=== PATIENT | female | born 1960 | race African-American/Black ===

== ENCOUNTER 2016-06-25 22:44 | Emergency (ER) | payer BC ==
[~2016-06-25] VITALS: Ht 170.2 cm; Wt 87.5 kg
[~2016-06-25 22:44] MED LIST: ADVAIR HFA 115-12 GM INH; AVELOX 400 MG400 M1; CEFDINIR300 MG PO; COZAAR 25 MG TA25 M2 PO; COZAAR 50 MG TA50 M2 PO; DIFLUCAN100 MG PO; DULERA 200 MCG/13 GM INH; DUONEB 2.5-0.5 M3 ML; FLONASE 0.05%50 MCG NASAL; GLUCOPHAGE1000 MG; GLUCOPHAGE1000 MG PO; LAMISIL250 MG; LAMISIL250 MG PO; LEVAQUIN 500 M500 M2 PO; METHYLPREDNISOLO4 M1 PO; NASONEX17 GM; NASONEX17 GM NASAL; OMEPRAZOLE40 MG PO; PAIN & FEVER500 MG PO; PREDNISONE 10 M10 MG PO; PREDNISONE 20 M20 M1 PO; PREDNISONE 20 M20 MG; PREDNISONE 20 M20 MG PO; PRILOSEC20 MG; PROVENTIL HFA6.7 G1 INH; SINGULAIR; VENTOLIN HFA 1818 GM INH; ZANTAC; ZOFRAN ODT4 MG PO
[2016-06-25] MEDS ORDERED: [UNRECOGNIZED DRUG - OTHER] IV (23:26)
[2016-06-25] MEDS ORDERED: QVAR8.7 G1 (23:27)
[2016-06-25] MEDS ORDERED: VITAMIN E400 UNIT PO (23:27)
[2016-06-26] MEDS ORDERED: IPRATROPIU0.2 MG/1 M INH (00:27)
[2016-06-26] MEDS ORDERED: GUAIFEN-CODEIN120 ML PO (00:31)
[2016-06-26] MEDS ORDERED: ZPAK PO (01:18)
== END 2016-06-26 01:26 | disposition home or self-care (01) ==
LOC: ER 22:44
DX: J01.90 Acute sinusitis, unspecified (principal); J20.9 Acute bronchitis, unspecified; J45.909 Unspecified asthma, uncomplicated; J44.9 Chronic obstructive pulmonary disease, unspecified; I10 Essential (primary) hypertension; E11.9 Type 2 diabetes mellitus without complications; K21.9 Gastro-esophageal reflux disease without esophagitis

== ENCOUNTER 2017-02-09 18:07 | Emergency (ER) | payer BC ==
[~2017-02-09] VITALS: Ht 170.2 cm; Wt 85.3 kg
[~2017-02-09 18:07] MED LIST changes: +GUAIFEN-CODEIN120 ML PO; +IPRATROPIU0.2 MG/1 M INH; +QVAR8.7 G1; +VITAMIN E400 UNIT PO; +ZPAK PO; +[UNRECOGNIZED DRUG - OTHER] IV
[2017-02-09 19:17] LABS: HEMATOCRIT 41.8 % (37.0-47.0); HEMOGLOBIN 13.8 gm/dL (12.0-15.0); MCH 27.6 pg (26.0-34.0); MCHC 33.1 g/dL (28.0-37.0); MCV 83.6 fL (80.0-100.0); RDW 12.9 % (10.5-14.5); WBC 7.2 thou/uL (4.0-11.0)
[2017-02-09 19:25] LABS: CALCIUM 9.5 mg/dL (8.5-10.1); POTASSIUM 3.8 mmol/L (3.5-5.1)
[2017-02-09] MEDS ORDERED: BLACK COHOSH40 MG PO (20:21)
[2017-02-09] MEDS ORDERED: PULMICORT0.25 MG/3 INH (20:22)
[2017-02-09] MEDS ORDERED: VITAMIN D3400 UNIT PO (20:22)
[2017-02-09] MEDS ORDERED: DEXAMETHASONE 0.5 M1 NASAL (20:24)
[2017-02-09] MEDS ORDERED: IBUPROFEN 800800 M1 PO (20:25)
[2017-02-09] MEDS ORDERED: NORCO 5-325 TA1 EACH PO (20:25)
[2017-02-09] MEDS ORDERED: ATROVENT HFA14 GM NASAL (20:26)
[2017-02-09] MEDS ORDERED: PROBIOTIC1 EAC1 PO (20:27)
[2017-02-09] MEDS ORDERED: MUPIROCIN22 GM TOP (20:29)
[2017-02-09] MEDS ORDERED: PROAIR HFA8.5 GM INH ×2 (20:31→20:41)
[2017-02-09] MEDS ORDERED: SPIRIVA INH (20:31)
[2017-02-09] MEDS ORDERED: PREDNISONE 20 M20 MG PO ×2 (20:41→20:55)
[2017-02-09] MEDS ORDERED: AUGMENTIN 875-1 EACH PO (20:55)
[2017-02-09 20:57] VITALS: BP 141/87
[2017-09-08] MEDS ORDERED: DOXYCYCLINE HYC50 MG PO (11:53)
[2017-09-08] MEDS ORDERED: SINGULAIR 10 MG10 M1 PO (11:54)
[2017-09-08] MEDS ORDERED: PREDNISONE 10 M10 MG PO (11:57)
== END 2017-02-09 20:58 | disposition home or self-care (01) ==
LOC: ER 18:07
PROVIDERS: Emergency Medicine
DX: J45.901 Unspecified asthma with (acute) exacerbation (principal); J44.9 Chronic obstructive pulmonary disease, unspecified; E11.9 Type 2 diabetes mellitus without complications; I10 Essential (primary) hypertension; K21.9 Gastro-esophageal reflux disease without esophagitis

== ENCOUNTER 2017-08-05 10:13 | Emergency (ER) | payer BC ==
[~2017-08-05] VITALS: Ht 170.2 cm; Wt 82.1 kg
--- NOTE | ~2017-08-05 | EKG ---
[place] [address] [email or web address] [address] [place] [address] ELECTROCARDIOGRAM REPORT Name: ANTOINETTE RESENDIZ Room #: DEP [id number] Admission: 08/05/17 Attend Phys: Discharge: 08/05/17 Date of : 64 Report #: [id number] THIS REPORT FOR: //name// [facility] ED Test Date: 2017-08-05 Test Time: 10:21:03 Pat Name: ANTOINETTE CAMPOS Department: Room: Gender: F Sap Bobj Developer: ROBY : 1960 Requested By: Gera Senior Order Number: [id number] MD: Frankie Lee Measurements Intervals [place] Rate: 87 P: 73 WA: 146 QRS: 66 QRSD: 95 T: 58 QT: 359 QTc: 432 Interpretive Statements Sinus tachycardia Frequent premature ventricular complexes Left ventricular hypertrophy Baseline wander in lead(s) I Compared to ECG 01/21/2015 21:57:58 Ventricular premature complex(es) now present Electronically Signed On 08-06-2017 7:48:31 CDT by Frankie Lee [email or web address] <ELECTRONICALLY SIGNED> By: Frankie Lee MD, [facility] 08/06/17 0748 1021 1021 Frankie Lee MD, [facility] /EPI
[~2017-08-05 10:13] MED LIST changes: +ATROVENT HFA14 GM NASAL; +AUGMENTIN 875-1 EACH PO; +BLACK COHOSH40 MG PO; +DEXAMETHASONE 0.5 M1 NASAL; +IBUPROFEN 800800 M1 PO; +MUPIROCIN22 GM TOP; +NORCO 5-325 TA1 EACH PO; +PROAIR HFA8.5 GM INH; +PROBIOTIC1 EAC1 PO; +PULMICORT0.25 MG/3 INH; +SPIRIVA INH; +VITAMIN D3400 UNIT PO
[2017-08-05 10:42] LABS: BASOPHILS 1.1 % (0.0-2.0); EOSINOPHILS 1.1 % (0.0-3.0); HEMATOCRIT 42.1 % (37.0-47.0); LYMPHOCYTES 39.1 % (24.0-44.0); MCHC 33.3 g/dL (28.0-37.0); MONOCYTES 7.6 % (1.0-8.0); POLYS 51.1 % (36.0-66.0); RBC 5.01 mil/uL (4.20-5.00); RDW 12.6 % (10.5-14.5); WBC 5.8 thou/uL (4.0-11.0)
[2017-08-05 10:54] LABS: ANION GAP 10 mmol/L (7-16); BUN 10 mg/dL (7-18); CHLORIDE 103 mmol/L (98-107); CO2 28 mmol/L (21-32); GLUCOSE 157 mg/dL (74-106); POTASSIUM 3.8 mmol/L (3.5-5.1); SODIUM 141 mmol/L (136-145)
[2017-08-05 11:00] LABS: LARGE PLATELETS FEW; PLATELET COUNT 262 thou/uL (150-400); PLATELET ESTIMATE NORMAL
[2017-08-05 11:03] LABS: TROPONIN-I <0.06 ng/mL (<0.06)
[2017-08-05] MEDS ORDERED: PREDNISONE 20 M20 MG PO (13:26)
[2017-08-05] MEDS ORDERED: PROAIR HFA8.5 GM INH (13:36)
[2017-08-05] MEDS ORDERED: ALBUTEROL2.5 MG/31 INH (13:36)
[2017-08-05] MEDS ORDERED: PROVENTIL HFA6.7 G1 INH (13:36)
== END 2017-08-05 14:09 | disposition home or self-care (01) ==
LOC: ER 10:13
PROVIDERS: Physician Assistant
DX: J45.901 Unspecified asthma with (acute) exacerbation (principal); I16.0 Hypertensive urgency; E11.9 Type 2 diabetes mellitus without complications; K21.9 Gastro-esophageal reflux disease without esophagitis; Z87.891 Personal history of nicotine dependence

== ENCOUNTER 2017-12-27 11:03 | Emergency (ER) | payer BC ==
[~2017-12-27] VITALS: Ht 170.2 cm; Wt 84.4 kg
[~2017-12-27 11:03] MED LIST changes: +ALBUTEROL2.5 MG/31 INH; +DOXYCYCLINE HYC50 MG PO; +SINGULAIR 10 MG10 M1 PO
[2017-12-27 11:45] LABS: ABSOLUTE NEUTROPHILS 3.1 thou/uL (1.4-8.2); BASOPHILS 0.6 % (0.0-2.0); EOSINOPHILS 0.7 % (0.0-3.0); HEMATOCRIT 38.2 % (37.0-47.0); HEMOGLOBIN 12.6 gm/dL (12.0-15.0); LYMPHOCYTES 25.4 % (24.0-44.0); MCH 27.4 pg (26.0-34.0); MCHC 32.9 g/dL (28.0-37.0); MCV 83.5 fL (80.0-100.0); MONOCYTES 10.5 % (1.0-8.0); PLATELET COUNT 229 thou/uL (150-400); POLYS 62.8 % (36.0-66.0); RBC 4.58 mil/uL (4.20-5.00); RDW 12.5 % (10.5-14.5); WBC 4.9 thou/uL (4.0-11.0)
[2017-12-27 11:54] LABS: CALCIUM 9.4 mg/dL (8.5-10.1); CREATININE 0.9 mg/dL (0.6-1.0); POTASSIUM 3.9 mmol/L (3.5-5.1)
[2017-12-27 12:00] LABS: ALBUMIN 3.7 g/dL (3.4-5.0); TOTAL BILIRUBIN 0.4 mg/dL (<0.1-1.0); TOTAL PROTEIN 7.1 g/dL (6.4-8.2)
[2017-12-27 12:25] LABS: URINE BILIRUBIN NEGATIVE (Negative); URINE BLOOD NEGATIVE (Negative); URINE CLARITY CLEAR; URINE COLOR YELLOW; URINE GLUCOSE-RANDOM* NEGATIVE (Negative); URINE KETONES NEGATIVE (Negative); URINE LEUKOCYTES-REFLEX NEGATIVE (Negative); URINE NITRITE-REFLEX NEGATIVE (Negative); URINE PROTEIN (DIPSTICK) NEGATIVE (Negative); URINE UROBILINOGEN 0.2 E.U./dl (0.2-1.0)
[2017-12-27] MEDS ORDERED: IBUPROFEN 600600 M1 PO (12:51)
[2017-12-27] MEDS ORDERED: NORCO 5-325 TA1 EACH PO (12:51)
[2017-12-27] MEDS ORDERED: FLEXERIL PO (12:51)
[2017-12-27 12:56] VITALS: BP 119/68
== END 2017-12-27 13:00 | disposition home or self-care (01) ==
LOC: ER 11:03
PROVIDERS: Physician Assistant
DX: S39.012A Strain of muscle, fascia and tendon of lower back, initial encounter (principal); R10.9 Unspecified abdominal pain; J45.909 Unspecified asthma, uncomplicated; J44.9 Chronic obstructive pulmonary disease, unspecified; E11.9 Type 2 diabetes mellitus without complications; I10 Essential (primary) hypertension; K21.9 Gastro-esophageal reflux disease without esophagitis; Z87.891 Personal history of nicotine dependence; Z88.8 Allergy status to other drugs, medicaments and biological substances; Z88.2 Allergy status to sulfonamides; X58.XXXA Exposure to other specified factors, initial encounter; Y92.89 Other specified places as the place of occurrence of the external cause; Y93.89 Activity, other specified; Y99.8 Other external cause status

== ENCOUNTER 2018-01-23 20:20 | Emergency (ER) | payer BC ==
[~2018-01-23] VITALS: Ht 170.2 cm; Wt 82.1 kg
[~2018-01-23 20:20] MED LIST changes: +FLEXERIL PO; +IBUPROFEN 600600 M1 PO
[2018-01-23] MEDS ORDERED: PREDNISONE 20 M20 MG PO (22:52)
[2018-01-23 23:10] VITALS: BP 138/75
== END 2018-01-23 23:14 | disposition home or self-care (01) ==
LOC: ER 20:20
DX: J45.901 Unspecified asthma with (acute) exacerbation (principal); I10 Essential (primary) hypertension; E11.9 Type 2 diabetes mellitus without complications; K21.9 Gastro-esophageal reflux disease without esophagitis; Z87.891 Personal history of nicotine dependence; Z88.8 Allergy status to other drugs, medicaments and biological substances; Z88.2 Allergy status to sulfonamides

== ENCOUNTER 2018-07-07 08:10 | Inpatient (IN) | payer BC ==
[~2018-07-07] VITALS: Ht 170.2 cm; Wt 80.7 kg
[2018-07-07 08:11] VITALS: BP 174/92
[2018-07-07 09:09] LABS: HEMATOCRIT 40.6 % (37.0-47.0); HEMOGLOBIN 13.4 gm/dL (12.0-15.0); MCH 27.9 pg (26.0-34.0); MCHC 33.1 g/dL (28.0-37.0); MCV 84.3 fL (80.0-100.0); PLATELET COUNT 231 thou/uL (150-400); RBC 4.82 mil/uL (4.20-5.00); RDW 13.2 % (10.5-14.5); WBC 6.8 thou/uL (4.0-11.0)
[2018-07-07 09:14] LABS: CALCIUM 9.3 mg/dL (8.5-10.1); CREATININE 0.9 mg/dL (0.6-1.0); POTASSIUM 3.6 mmol/L (3.5-5.1)
[2018-07-07 09:43] LABS: ABSOLUTE NEUTROPHILS 4.2 thou/uL (1.4-8.2); PLATELET ESTIMATE NORMAL
[2018-07-07 16:30] VITALS: BP 145/99
[2018-07-07 16:45] VITALS: BP 163/97
[2018-07-07 18:42] VITALS: BP 155/97
--- NOTE | 2018-07-07 18:47 | NUR ---
Patient arrived from ER. Alert and oriented x4, pleasant. Requesting dinner, tray delivered to room. On 2L NC. Steady gait. Oriented to room, call light, bed and fall precautions. Verbalizes understanding. Telemetry placed on patient and vitals taken. Pulmonary consult called and Dr. Herzog with call back. Updated on patient; Jayjay ordered PRN. Will report off to next shift. Continue to monitor.
[2018-07-07 19:46] VITALS: BP 125/90
[2018-07-07] MEDS ORDERED: LOSARTAN POTAS100 MG PO (20:57)
[2018-07-07] MEDS ORDERED: ZANTAC 150MG T150 M1 PO (20:58)
[2018-07-07] MEDS ORDERED: IBUPROFEN 800800 M1 PO (20:59)
[2018-07-07] MEDS ORDERED: METFORMIN HCL500 MG PO (21:49)
[2018-07-07] MEDS ORDERED: SYMBICORT160 MCG/4. INH (22:22)
[2018-07-07] MEDS ORDERED: QNASL10.6 GM INH (22:25)
[2018-07-08 00:12] VITALS: BP 158/93
[2018-07-08 04:24] VITALS: BP 143/96
--- NOTE | 2018-07-08 04:49 | NUR ---
PATIENT IS PROGRESSING IN HER CARE PLAN. VITAL SIGNS STABLE WITH PATIENT HAVING NO COMPLAINTS OF NAUSEA. PATIENT DID COMPLAIN OF HEADACHE WHICH WAS TREATED APPROPRIATELY BY NURSE. PATIENT FULLY ORIENTED AND ABLE TO CALL APPROPRIATELY AND PARTICIPATE IN ADMISSION AND CARE PLAN. BREATHING STABLE ON OXYGEN EVIDENCED BY SPOT OXYGENATION CHECKS. PATIENT HAS BEEN ABLE TO FREELY AMBULATE AROUND THE ROOM AD AARON INCIDENT FREE, AND APPEARS STRONG AND BALANCED WHEN WALKING. NURSE COMPLETED ADMISSION AND INITIATED CARE PLAN. CONTINUE PLAN OF CARE.
[2018-07-08 05:29] LABS: HEMATOCRIT 38.6 % (37.0-47.0); HEMOGLOBIN 12.8 gm/dL (12.0-15.0); MCH 27.8 pg (26.0-34.0); MCHC 33.1 g/dL (28.0-37.0); MCV 84.2 fL (80.0-100.0); RBC 4.59 mil/uL (4.20-5.00); RDW 13.3 % (10.5-14.5); WBC 10.1 thou/uL (4.0-11.0)
[2018-07-08 05:37] LABS: CALCIUM 9.7 mg/dL (8.5-10.1); CREATININE 0.8 mg/dL (0.6-1.0)
[2018-07-08 07:26] VITALS: BP 154/94
--- NOTE | 2018-07-08 07:31 | EKG ---
[address] [address] ELECTROCARDIOGRAM REPORT Name: LAUREN CAMPOSANTOINETTE COBURN Room #: 350- ADM IN M.R.#: [id number] ������������������ Admission: 07/07/18 ������������������ Attend Phys: Mo Dave MD Discharge: ������������������ Date of : 64 Report #: [id number] ����������������������������������������������������������������� [id number] THIS REPORT FOR: //name// [facility] ED Test Date: 2018-07-07 Test Time: 14:01:09 Pat Name: ANTOINETTE CAMPOS Department: Room: 350 P Gender: F Race Board Attendant: DYAN : 1960 Requested By: Cesilia Yancey Order Number: [id number] MD: Rojelio Kinsey Measurements Intervals [place] Rate: 99 P: 69 NV: 171 QRS: 75 QRSD: 89 T: 83 QT: 340 QTc: 437 Interpretive Statements Sinus tachycardia Paired ventricular premature complexes Biatrial enlargement Probable left ventricular hypertrophy Nonspecific T abnormalities, lateral leads Compared to ECG 08/05/2017 10:21:03 Atrial abnormality now present T-wave abnormality now present Electronically Signed On 07-08-2018 7:31:25 CDT by Rojelio Kinsey [email or web address] ��������������������������������������������� <ELECTRONICALLY SIGNED> ���������������������������������������� By: Rojelio Kinsey MD ��������������������������������������������� 07/08/18 0731 140 140 Rojelio Kinsey MD /EPI
--- NOTE | 2018-07-08 10:18 | NUR ---
ASSESSMENT: CM REVIEWED CHART AND MET WITH PATIENT AT THE BEDSIDE. PT WAS ADMITTED WITH ASTHMA EXACERBATION. PT REPORTS LIVING AT HOME WITH HER . PT REPORTS BEING FULLY INDEPENDENT WITH ADLS AND AMBULATION. PT REPORTS SHE HAS NOT HAD HH IN THE PAST. PT STATES SHE HAS A NEBULIZER AT HOME. CM DISCUSSED ROLE. PT STATING SHE WILL HAVE NO NEEDS AT DISCHARGE.
--- NOTE | 2018-07-08 13:42 | NUR ---
Assess due to RD consult received for poor intake past week. Upon visit, pt had just completed lunch, tolerated well. Stated "I'm just fine, I don't need a dietitians service, everything is good." BG elevated likely with steroids. No significant wt change past 6 mo. Low nutrition risk.
--- NOTE | 2018-07-08 13:46 | NUR ---
AFTER REVIEWING PT CHART AND DISCUSSING THERAPY PURPOSE AND GOALS WITH PT, PT PROCEEDED TO REFUSE THERAPY SERVICES. PT REPORTS SHE IS MORE THAN CAPABLE OF WALKING AROUND ON HER OWN NOW THAT SHE IS BREATHING BETTER. RN REPORTS PT IS UP AD AARON IN ROOM AND WILL ENCOURAGE PT TO INCREASE ACTIVITY TODAY. PT INFORMED TO ASK FOR RE-CONSULT IF NEW CONCERNS ARISE
[2018-07-08 16:28] VITALS: BP 169/87
--- NOTE | 2018-07-08 16:44 | NUR ---
ASSUMED CARE AT 0700, SHIFT ASSESSMENT DONE, MEDS GIVEN, BP SLIGHTLY ELEVATED THIS AM, PATIENT EXPRESSED CONCERNS, DR JAFFE INFORMED. BP MEDS STARTED. REMAINS ON 3L NC, UP AD AARON. DENIES NAUSEA, VOMITING, PAIN. WILL CONTINUE TO ASSESS AND ASSIST WITH ADLs NEEDED.
[2018-07-08 19:50] VITALS: BP 168/86
[2018-07-09 04:45] VITALS: BP 134/90
--- NOTE | 2018-07-09 05:16 | NUR ---
PT MAKING PROGRESS TOWARDS GOALS. HAS DENIED ANY PAIN OVERNIGHT OR SOA. NOTED ST ELEVATION IN LIMB LEADS PER TELEMETRY. SPOKE WITH SYSTEM PLANNING ENGINEER. EKG AND TROPONIN DONE, AWAITING TROPONIN VALUE. PT HAS DENIED ANY CHEST DISCOMFORT, PRESSURE OR ACID INDIGESTION. INSTRUCTED TO CALL IF ANY OCCURS.
[2018-07-09 07:17] VITALS: BP 138/66
--- NOTE | 2018-07-09 09:34 | EKG ---
[address] [address] ELECTROCARDIOGRAM REPORT Name: ANTOINETTE RESENDIZ Room #: 350-P ADM IN M.R.#: [id number] ������������������ Admission: 07/07/18 ������������������ Attend Phys: Mo Dave MD Discharge: ������������������ Date of : 64 Report #: [id number] ����������������������������������������������������������������� [id number] THIS REPORT FOR: //name// [facility] Test Date: 2018-07-09 Test Time: 04:22:12 Pat Name: ANTOINETTE CAMPOS Department: Room: 350 P Gender: F Thin Film Technician: tessak : 1960 Requested By: Sharonda Temple Order Number: [id number] MD: Frankie Lee Measurements Intervals [place] Rate: 82 P: 77 GA: 137 QRS: 80 QRSD: 94 T: 77 QT: 383 QTc: 448 Interpretive Statements Sinus rhythm Paired ventricular premature complexes Consider left ventricular hypertrophy Compared to ECG 07/07/2018 14:01:09 Sinus tachycardia no longer present Electronically Signed On 07-09-2018 9:34:20 CDT by Frankie Lee [email or web address] ��������������������������������������������� <ELECTRONICALLY SIGNED> ���������������������������������������� By: Frankie Lee MD, [facility] ��������������������������������������������� 07/09/18 0934 0422 0422 Frankie Lee MD, [facility] /EPI
--- NOTE | 2018-07-09 09:38 | EKG ---
[address] [address] ELECTROCARDIOGRAM REPORT Name: ANTOINETTE RESENDIZ Room #: 350-P ADM IN M.R.#: [id number] ������������������ Admission: 07/07/18 ������������������ Attend Phys: Mo Dave MD Discharge: ������������������ Date of : 64 Report #: [id number] ����������������������������������������������������������������� [id number] THIS REPORT FOR: //name// [facility] Test Date: 2018-07-09 Test Time: 09:21:40 Pat Name: ANTOINETTE CAMPOS Department: Room: 350 P Gender: F Marine Rigger: REYES : 1960 Requested By: Alyssa Quinn Order Number: [id number] MD: Frankie Lee Measurements Intervals [place] Rate: 87 P: 71 [place]: 131 QRS: 74 QRSD: 94 T: 65 QT: 350 QTc: 421 Interpretive Statements Sinus rhythm Ventricular premature complex Consider left ventricular hypertrophy Anterior ST elevation, probably due to LVH Compared to ECG 07/07/2018 14:01:09 no significant change was found Electronically Signed On 07-09-2018 9:37:48 CDT by Frankie Lee [email or web address] ��������������������������������������������� <ELECTRONICALLY SIGNED> ���������������������������������������� By: Frankie Lee MD, [facility] ��������������������������������������������� 07/09/18 0937 0 0 Frankie Lee MD, [facility] /EPI
[2018-07-09 10:01] LABS: CHOLESTEROL 190 mg/dL (<200); HDL CHOLESTEROL 50 mg/dL (>40); LDL CHOLESTEROL 121 mg/dL (<100); TC:HDL 3.8 Ratio (Not establshd); TRIGLYCERIDE 98 mg/dL (<150); VLDL 20 mg/dL (<40)
--- NOTE | 2018-07-09 11:37 | 2DMMODE ---
[facility] [address] [place] [address] 2 D/M-MODE ECHOCARDIOGRAM Name: ANTOINETTE RESENDIZ Room #: 350-P ADM IN M.R.#: [id number] ������������� Admission: 07/07/18 ������������� Attend Phys: Mo Dave MD Discharge: ��� ������������� ��� Date of : 64 Date of Service: 07/09/18 1137 �� Report #: [id number] �������� ��������������������������������������������[id number] THIS REPORT FOR: //name// APPROVED REPORT Study performed: 07/09/2018 10:57:18 EXAM: Comprehensive 2D, Doppler, and color-flow Echocardiogram Patient Location: Echo lab Room #: 350 Status: routine BSA: 1.92 HR: 92 bpm BP: 138/66 mmHg Rhythm: NSR/Arrhythmia Other Information Study Quality: Adequate/low parasternal window Indications Abnormal EKG, tachycardia, SOB. Hx: HTN, HLP, DM, COPD. 2D Dimensions RVDd: 32.74 mm IVSd: 12.00 (7-11mm) LVOT Diam: 20.43 (18-24mm) LVDd: 37.67 mm PWd: 12.00 (7-11mm) Ascending Ao: 30.32 (22-36mm) LVDs: 26.69 (25-40mm) Aortic Root: 30.73 mm Volumes Left Atrial Volume (Systole) Single Plane 4CH: 38.32 mL Single Plane 2CH: 50.25 mL LA ESV Index: 25.00 mL/m2 Aortic Valve AoV Peak Raj.: 1.41 m/s AO Peak Gr.: 7.95 mmHg LVOT Max P.53 mmHg LVOT Max V: 0.94 m/s BIPIN Vmax: 2.18 cm2 Mitral Valve E/A Ratio: 0.6 MV Decel. Time: 250.00 ms MV E Max Raj.: 0.94 m/s [facility] [place] [address] 2 D/M-MODE ECHOCARDIOGRAM Name: ANTOINETTE RESENDIZ Room #: 350-P [facility] IN .R.#: [id number] ������������� Admission: 07/07/18 ������������� Attend Phys: Mo Dave MD Discharge: ��� ������������� ��� Date of : 64 Date of Service: 07/09/18 1137 �� Report #: [id number] �������� ��������������������������������������������[id number] MV A Raj.: 1.46 m/s MV PHT: 72.50 ms IVRT: 96.89 ms Pulmonary Vein P Vein S: 0.70 m/s P Vein A: 0.34 m/s P Vein D: 0.47 m/s P Vein A Dur.: 100.3 msec P Vein S/D Ratio: 1.49 Tricuspid Valve TR Peak Raj.: 2.65 m/s RAP Estimate: 5.00 mmHg TR Peak Gr.: 28.01 mmHg PA Pressure: 33.00 mmHg Left Ventricle The left ventricle is normal size. There is normal LV segmental wall motion. Mild concentric left ventricular hypertrophy. Left ventricular systolic function is normal. LVEF is 60-65%. Mild diastolic dysfunction is present (impaired relaxation pattern). Right Ventricle The right ventricle is normal size. The right ventricular systolic function is normal. Atria The left atrium size is normal. The right atrium size is normal. Aortic Valve Aortic valve leaflets are mildly thickened. Trace aortic regurgitation. There is no aortic valvular stenosis. Mitral Valve The mitral valve is normal in structure. Mild mitral annular calcification. There is no mitral valve regurgitation noted. No evidence of mitral valve stenosis. Tricuspid Valve The tricuspid valve is normal in structure. Mild tricuspid regurgitation. Estimated PAP is 35mmHg. Pulmonic Valve Pulmonic valve is not well visualized. [facility] [employer] [address] [place] [address] 2 D/M-MODE ECHOCARDIOGRAM Name: ANTOINETTE RESENDIZ Room #: 350-P ADM IN M.R.#: [id number] ������������� Admission: 07/07/18 ������������� Attend Phys: Mo Dave MD Discharge: ��� ������������� ��� Date of : 64 Date of Service: 07/09/18 1137 �� Report #: [id number] �������� ��������������������������������������������[id number] The aortic root is normal in size. The ascending aorta is normal in size. IVC is normal in size and collapses >50% with inspiration. Pericardium There is no pericardial effusion. <Conclusion> The left ventricle is normal size. LVEF is 60-65%. Aortic valve leaflets are mildly thickened. Trace aortic regurgitation. The mitral valve is normal in structure. Mild mitral annular calcification. The tricuspid valve is normal in structure. Mild tricuspid regurgitation. Estimated PAP is 35mmHg. There is no pericardial effusion. ��������������������������������������������� <ELECTRONICALLY SIGNED> ���������������������������������������� By: Alex Ledesma MD ��������������������������������������������� 07/09/18 1137 1137 1137 Alex Ledesma MD /INF
[2018-07-09 11:51] VITALS: BP 147/79
--- NOTE | 2018-07-09 11:53 | NUR ---
ON-GOING ASSESSMENT: CM REVIEWED CHART. PT IS POSSIBLY NEEDING A BRONCH WHICH MAY BE DONE INPATIENT OR OUTPATIENT. PT IS STILL ON IV STEROIDS. PT IS POSSIBLE DISCHAGRE OVER THE WEEKEND AND REPORTS SHE WILL HAVE NO NEEDS.
[2018-07-09 15:24] VITALS: BP 149/112
--- NOTE | 2018-07-09 17:45 | NUR ---
care of pt assumed this am @ ~ 0700. pt hopeful of dc today, but dr. murphy stated the pt needs to "remove the mucous plugs she has and discharge maybe this weekend". pt informed of her need to hydrate to help the mucinex thin and loosen the mucous plugs she has in her lungs. pt on oxygen prn per nasal cannula. pt co soa w/ exertion (walking to bthrm and back), but recovers in less than a minute once back in bed. pt w/ a good appetite for food and fluid consumption. pt co headache today and requested tramadol instead of tylenol. pt had an echo this afternoon and informed of results by rn. noted bronchoscopy scheduled for 07/13/18 @ 9am per dr. anglin.
[2018-07-09 19:55] VITALS: BP 148/93
[2018-07-10 04:52] VITALS: BP 141/87
[2018-07-10 07:14] VITALS: BP 163/108
--- NOTE | 2018-07-10 08:17 | NUR ---
PT MAKING SLOW PROGRESS TOWARDS GOALS. LUNGS COARSE THROUGHOUT. PT HAS OCCASIONAL HARSH AND CONGESTED COUGH. PER REPORT, PT IS SUSPECTED OF HAVING EXCESS MUCOUS IN HER AIRWAYS THUS SHE HAS BEEN STARTED ON MUCINEX. PT IS REPORTEDLY DRINKING MORE WATER. ON ROOM AIR THROUGHOUT THE NIGHT. DENIED ANY SOA WHILE UP TO TOILET.
[2018-07-10 11:08] VITALS: BP 145/98
[2018-07-10] MEDS ORDERED: BYSTOLIC 5 MG5 M1 PO (11:09)
[2018-07-10] MEDS ORDERED: PREDNISONE 10 M10 MG PO (11:11)
[2018-07-10] MEDS ORDERED: LEVAQUIN 750 M750 MG PO (11:11)
[2018-07-10 11:53] VITALS: BP 145/98
--- NOTE | 2018-07-10 12:03 | NUR ---
care of pt assumed this am @ ~0700. pt noted to be awake and talking on her cell phone, w/o soa and w/o her oxygen on. pt co soa w/ exertion, which is after she ambulates about room for > than 10 minutes. pt states she does not wear oxygen at home. pt w/ a good appetite for food and fluid today. pt denies n/v/d and no pain at this time. pt co a productive cough and is starting a sore throat for her. discharge orders placed by dr. mari. 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 pt informed that if she should get home and need the home health care service she only needs to call her pcp and they can set it up for her. iv access and tele dc'd. pt request to stay to enjoy her lunch and then she will be ready for dc today.
[2018-07-10 13:27] VITALS: BP 145/98
[2018-07-12] MEDS ORDERED: QVAR REDIHALE10.6 G1 INH (13:36)
[2018-07-12] MEDS ORDERED: MENOPAUSE SUPPO20 MG PO (13:55)
[2018-07-12] MEDS ORDERED: LEVAQUIN 750 M750 MG PO (13:57)
[2018-07-12] MEDS ORDERED: SINGULAIR 10 MG10 M1 PO (13:57)
[2018-07-12] MEDS ORDERED: BYSTOLIC 5 MG5 M1 PO (13:58)
[2018-07-12] MEDS ORDERED: PREDNISONE 10 M10 MG PO (14:00)
[2018-07-12 15:10] LABS: HISTOPLASMA MYCELIAL-ID Negative (Negative)
== END 2018-07-10 14:07 | disposition home or self-care (01) | DRG 189 ==
LOC: ER 08:10 → 3W 13:27 → EROBS 13:27 → 3W 16:45
PROVIDERS: Emergency Medicine; Nurse Practitioner Gerontology; Pediatrics; ADMIT Hospitalist
DX: J96.01 Acute respiratory failure with hypoxia (principal); J45.901 Unspecified asthma with (acute) exacerbation; I10 Essential (primary) hypertension; J44.9 Chronic obstructive pulmonary disease, unspecified; E11.39 Type 2 diabetes mellitus with other diabetic ophthalmic complication; H40.9 Unspecified glaucoma; J32.9 Chronic sinusitis, unspecified; R94.31 Abnormal electrocardiogram [ECG] [EKG]; H42 Glaucoma in diseases classified elsewhere; K21.9 Gastro-esophageal reflux disease without esophagitis; Z87.891 Personal history of nicotine dependence; Z79.51 Long term (current) use of inhaled steroids; Z79.84 Long term (current) use of oral hypoglycemic drugs; Z79.899 Other long term (current) drug therapy; Z88.2 Allergy status to sulfonamides; Z88.8 Allergy status to other drugs, medicaments and biological substances; Z82.49 Family history of ischemic heart disease and other diseases of the circulatory system
CPT/HCPCS: 10879

== ENCOUNTER 2018-07-13 06:08 | Outpatient (CLI) | payer BC ==
[~2018-07-13] VITALS: Ht 170.2 cm; Wt 79.4 kg
[~2018-07-13 06:08] MED LIST changes: +BYSTOLIC 5 MG5 M1 PO; +LEVAQUIN 750 M750 MG PO; +LOSARTAN POTAS100 MG PO; +MENOPAUSE SUPPO20 MG PO; +METFORMIN HCL500 MG PO; +QNASL10.6 GM INH; +QVAR REDIHALE10.6 G1 INH; +SYMBICORT160 MCG/4. INH; +ZANTAC 150MG T150 M1 PO
[2018-07-13 07:19] VITALS: BP 145/78
--- NOTE | 2018-07-14 17:06 | PATH ---
[facility] [address] [place] [address] PATHOLOGY RPT PROCEDURE Name: ANTOINETTE RESENDIZ Room #: DEP SHIRA Singh.Lorraine.#: [id number] ������������������ Admission: 07/13/18 ������������������ Date of : 64 Discharge: 07/13/18 Report #: [id number] Path Case #: [id number] Note [facility] Accession Number: [id number] TESTS RESULT FLAG UNITS REF RANGE LAB Clinician Provided Cytology Information No. of containers..01 Other (Miscellaneous) Source: BALDEMAR BAL DIAGNOSIS: BALDEMAR BAL NEGATIVE FOR MALIGNANT CELLS. REACTIVE SQUAMOUS CELLS ARE PRESENT. SILVER METHENAMINE STAINED SMEARS ARE NEGATIVE FOR PNEUMOCYSTIS JIROVECI. RARE POSSIBLE PSEUDOHYPHAE AND YEAST IDENTIFIED, SMEAR WITH LOW CELLULARITY. Pathologist ICD10: 02 R06.02 Signed out by: Althea Canales MD, Pathologist NPI- [id number] Performed by: Robin Espinal, Shower Enclosure Installer ([facility]) Gross description: 13ML, COLORLESS, CLOUDY /LCS FLAG LEGEND: L-Low Normal,H-High Normal,LL-Alert Low,HH-Alert High <-Panic Low,>-Panic High,A-Abnormal,AA-Critical Abnormal Performed at: [address] [place] [address] Selvin Martinez MD, [address] [address] Samantha Canales MD, Specimen Comment: A courtesy copy of this report has been sent to Specimen Comment: [phone], . Specimen Comment: [id number] Specimen Comment: Report sent to / DR VIDAL Performed at: [address], [place], [place] [id number] [address] [address] PATHOLOGY RPT PROCEDURE Name: LAUREN CAMPOSANTOINETTE Room #: DEP SHIRA Ramirez#: [id number] ������������������ Admission: 07/13/18 ������������������ Date of : 64 Discharge: 07/13/18 Report #: [id number] Path Case #: [id number] MD Selvin Martinez MD Phone: [phone]
--- NOTE | 2018-07-14 17:06 | PATH ---
[facility] [address] [place] [address] PATHOLOGY RPT PROCEDURE Name: ANTOINETTE RESENDIZ Room #: DEP SHIRA Singh.R.#: [id number] ������������������ Admission: 07/13/18 ������������������ Date of : 64 Discharge: 07/13/18 Report #: [id number] Path Case #: [id number] Note [facility] Accession Number: [id number] TESTS RESULT FLAG UNITS REF RANGE LAB Clinician Provided Cytology Information No. of containers..01 Other (Miscellaneous) Source: LLL MICRO BRUSH TIP DIAGNOSIS: LLL MICRO BRUSH TIP NEGATIVE FOR MALIGNANT CELLS. NORMAL BRONCHIAL CELLS AND MACROPHAGES ARE PRESENT. THIS INTERPRETATION INCLUDES EVALUATION OF A CELL BLOCK. Pathologist ICD10: 02 R06.02 Signed out by: Samantha Canales MD, Pathologist NPI- [id number] Performed by: Robin Espinal, Plumbing Foreman ([facility]) Gross description: 01 13ML, COLORLESS, CLOUDY /LCS FLAG LEGEND: L-Low Normal,H-High Normal,LL-Alert Low,HH-Alert High <-Panic Low,>-Panic High,A-Abnormal,AA-Critical Abnormal Performed at: [address] [place] [address] Selvin Martinez MD, [address] [address] Samantha Canales MD, Specimen Comment: A courtesy copy of this report has been sent to Specimen Comment: [phone]. Specimen Comment: Report sent to Performed at: [address], [place], [place] [id number] MD Selvin Martinez MD Phone: [phone]
--- NOTE | 2018-07-15 13:09 | PATH ---
[facility] [address] [place] [address] PATHOLOGY RPT PROCEDURE Name: ANTOINETTE RESENDIZ Room #: DEP SHIRA M.R.#: [id number] ������������������ Admission: 07/13/18 ������������������ Date of : 64 Discharge: 07/13/18 Report #: [id number] Path Case #: [id number] Note LCA Accession Number: [id number] TESTS RESULT FLAG UNITS REF RANGE LAB Clinician Provided Cytology Information No. of containers..01 Other (Miscellaneous) Source: BALDEMAR CYTO BRUSH TIP DIAGNOSIS: 02 BALDEMAR CYTO BRUSH TIP NEGATIVE FOR MALIGNANT CELLS. NORMAL BRONCHIAL CELLS AND MACROPHAGES ARE PRESENT. Pathologist ICD10: 02 R06.02 Signed out by: 02 Samantha Canales MD, Pathologist NPI- [id number] Performed by: Robin Espinal, [employer] ([facility]) Gross description: 01 5ML, COLORLESS, CLOUDY /LCS FLAG LEGEND: L-Low Normal,H-High Normal,LL-Alert Low,HH-Alert High <-Panic Low,>-Panic High,A-Abnormal,AA-Critical Abnormal Performed at: [address] [place] [address] Selvin Martinez MD, [address] [address] Samantha Canales MD, Specimen Comment: A courtesy copy of this report has been sent to Specimen Comment: [phone], . Specimen Comment: Report sent to / DR VIDAL Specimen Comment: A duplicate report has been generated due to demographic updates. Performed at: [address], [place], [place] [id number] MD Selvin Martinez MD Phone: [phone]
== END 2018-07-13 11:00 | disposition home or self-care (01) ==
LOC: CATH 06:08 → TBA 06:09 → CATH 11:00
DX: J45.901 Unspecified asthma with (acute) exacerbation (principal); J18.9 Pneumonia, unspecified organism; I10 Essential (primary) hypertension; E11.9 Type 2 diabetes mellitus without complications; H40.9 Unspecified glaucoma; K21.9 Gastro-esophageal reflux disease without esophagitis; Z98.51 Tubal ligation status; Z98.890 Other specified postprocedural states; Z79.899 Other long term (current) drug therapy; Z87.891 Personal history of nicotine dependence; Z88.2 Allergy status to sulfonamides; Z88.8 Allergy status to other drugs, medicaments and biological substances
CPT/HCPCS: 50010; 62110; 62900; 70005

== ENCOUNTER 2018-12-04 18:04 | Emergency (ER) | payer BC ==
[~2018-12-04] VITALS: Ht 170.2 cm; Wt 79.4 kg
[2018-12-04] MEDS ORDERED: CYCLOBENZAPRINE5 MG PO (19:35)
[2018-12-04] MEDS ORDERED: NORCO 5-325 TA1 EAC1 PO (19:35)
[2018-12-04 20:06] VITALS: BP 150/95
== END 2018-12-04 20:07 | disposition home or self-care (01) ==
LOC: ER 18:04
DX: M25.512 Pain in left shoulder (principal); M25.552 Pain in left hip; R07.81 Pleurodynia; J45.909 Unspecified asthma, uncomplicated; I10 Essential (primary) hypertension; E11.9 Type 2 diabetes mellitus without complications; K21.9 Gastro-esophageal reflux disease without esophagitis; Z98.890 Other specified postprocedural states; Z88.2 Allergy status to sulfonamides; Z91.018 Allergy to other foods; Z87.891 Personal history of nicotine dependence; V89.2XXA Person injured in unspecified motor-vehicle accident, traffic, initial encounter; Y92.89 Other specified places as the place of occurrence of the external cause; Y93.89 Activity, other specified; Y99.8 Other external cause status

== ENCOUNTER 2019-12-07 17:59 | Inpatient (IN) | payer BC ==
[~2019-12-07] VITALS: Ht 170.2 cm; Wt 81.0 kg
[~2019-12-07 17:59] MED LIST changes: +CYCLOBENZAPRINE5 MG PO; +NORCO 5-325 TA1 EAC1 PO
[2019-12-07 18:03] VITALS: BP 140/87
[2019-12-07] MEDS ORDERED: PROAIR RESPICL90 MCG INH (18:47)
[2019-12-07] MEDS ORDERED: PEPCID40 MG PO (18:48)
[2019-12-07] MEDS ORDERED: MENOPAUSE SUPPO20 MG PO (18:48)
[2019-12-07] MEDS ORDERED: FLONASE 0.05%50 MCG NARES (18:49)
[2019-12-07] MEDS ORDERED: IBUPROFEN 800800 M1 PO (18:50)
[2019-12-07] MEDS ORDERED: COZAAR 50 MG TA50 MG PO (19:15)
[2019-12-07] MEDS ORDERED: METFORMIN HCL500 M3 PO (19:15)
[2019-12-07] MEDS ORDERED: SINGULAIR 10 MG10 MG PO (19:16)
[2019-12-07] MEDS ORDERED: SYMBICORT160 MCG/4. INH (19:19)
[2019-12-07] MEDS ORDERED: SYSTANE NIGHTT3.5 GM OPHTHALMIC (19:20)
[2019-12-08 01:18] LABS: ABSOLUTE NEUTROPHILS 7.8 thou/uL (1.4-8.2); BASOPHILS 0.5 % (0.0-2.0); EOSINOPHILS 0.1 % (0.0-3.0); HEMATOCRIT 36.3 % (37.0-47.0); HEMOGLOBIN 12.1 gm/dL (12.0-15.0); LYMPHOCYTES 10.8 % (24.0-44.0); MCH 28.6 pg (26.0-34.0); MCHC 33.4 g/dL (28.0-37.0); MCV 85.7 fL (80.0-100.0); MONOCYTES 0.4 % (1.0-8.0); PLATELET COUNT 297 thou/uL (150-400); POLYS 88.2 % (36.0-66.0); RBC 4.24 mil/uL (4.20-5.00); WBC 8.8 thou/uL (4.0-11.0)
[2019-12-08 01:28] LABS: CALCIUM 9.2 mg/dL (8.5-10.1); POTASSIUM 4.6 mmol/L (3.5-5.1)
[2019-12-08 01:34] LABS: ALBUMIN 3.3 g/dL (3.4-5.0); TOTAL BILIRUBIN 0.1 mg/dL (0.2-1.0); TOTAL PROTEIN 7.2 g/dL (6.4-8.2)
[2019-12-08] MEDS ORDERED: SYMBICORT160 MCG/4. INH (04:42)
--- NOTE | 2019-12-08 08:35 | EKG ---
[facility] [address] [address] ELECTROCARDIOGRAM REPORT Name: ANTOINETTE RESENDIZ Room #: 170-10 ADM IN M.R.#: [id number] Admission: 12/07/19 Attend Phys: Mo Dave MD Discharge: Date of : 64 Report #: [id number] THIS REPORT FOR: cc: Cinthia Macias Diane C. DO Lundgren, Craig H. 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1960 Requested By: Cesilia Yancey Order Number: [id number] MD: Frankie Lee Measurements Intervals [place] Rate: 89 P: 65 NV: 143 QRS: 66 QRSD: 91 T: 57 QT: 360 QTc: 439 Interpretive Statements Sinus rhythm Left atrial enlargement Probable left ventricular hypertrophy Compared to ECG 07/09/2018 09:21:40 Ventricular premature complex(es) no longer present Electronically Signed On 12-08-2019 8:35:05 CDT by Frankie Lee [email or web address] <ELECTRONICALLY SIGNED> By: Frankie Lee MD, FACC 12/08/19 0835 10 10 Frankie Lee MD, FACC /EPI
[2019-12-08 08:47] VITALS: BP 152/70
[2019-12-08 17:40] VITALS: BP 141/81
[2019-12-08 17:53] VITALS: BP 152/81
[2019-12-08 19:04] VITALS: BP 156/58
--- NOTE | 2019-12-08 19:04 | NUR ---
ASSUMED PT CARE AT 1745. PT A&OX4, VSS. PT COMPLAINED OF NO PAIN. ADMISION PACKET GIVEN, ADMISSION COMPLETED. IV PATENT. PT UP AD AARON. HAS A COUGH, REPORTED COUGHING UP PHLEGM SOMETIMES, HOWEVER I DID NOT OBSERVE THIS. PT DRINKING WATER WELL, HAD NO COMPLAINTS AT THIS TIME. ENDORSED TO NIGHT NURSE.
[2019-12-09 00:06] LABS: GLYCOHEMOGLOBIN (HGB A1C) 5.8 % (4.8-5.6)
--- NOTE | 2019-12-09 03:16 | NUR ---
Patient making slow progress towards outcome goals. Oxygenation optimal on room air. Dry cough short of air with activity, recovers quickly after a few minutes. Breathing treatments and solumedrol, still coarse with wheezes. Vital signs and rhythm stable. Up adlib, low fall risks, gait steady. Calls out appropriately for needs.
[2019-12-09 06:11] LABS: HEMATOCRIT 37.4 % (37.0-47.0); HEMOGLOBIN 11.9 gm/dL (12.0-15.0); MCH 27.4 pg (26.0-34.0); MCHC 31.8 g/dL (28.0-37.0); MCV 86.1 fL (80.0-100.0); RBC 4.35 mil/uL (4.20-5.00); RDW 12.6 % (10.5-14.5); WBC 17.7 thou/uL (4.0-11.0)
[2019-12-09 06:37] LABS: CALCIUM 9.5 mg/dL (8.5-10.1); CREATININE 0.8 mg/dL (0.6-1.0); MAGNESIUM 1.7 mg/dL (1.8-2.4); POTASSIUM 4.3 mmol/L (3.5-5.1)
[2019-12-09 07:39] VITALS: BP 171/97
[2019-12-09 08:06] VITALS: BP 179/91
--- NOTE | 2019-12-09 10:26 | NUR ---
Assumed pt care at 7am.Assessment completed.vss, but elevated bp noted.Dr Shukla here,order noted.Pt ate 100% of meal served for breakfast.Cough syrup given per pt request.Pt will dc home tomorrow per Dr Shukla.No further c/o. Will continue to monitor.
--- NOTE | 2019-12-09 14:24 | NUR ---
PT ADMITTED REALTED TO SOA, COUGH. CM REVIEWED CHART AND SPOKE WITH CARE TEAM. CM CALLED AND SPOKE WITH PT OVER THE PHONE THIS DAY. PT APPEARED TO BE A&O X4. CM ROLE INTRODUCED. PT INDICATED SHE LIVES ALONE IN A HOUSE WITH 3 STEPS TO ENTER AND 4 STEPS INSIDE. 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 PT INDICATED NO HH HX. PT INDICATED THAT SHE HAD A NEBULIZER FOR HOME USE. PT INDICATED THAT HER PCP IS DR. FRANCO. PT INDICATED THAT SHE PLANS TO RETURN HOME ONCE MEDICALLY STABLE. CARE TEAM INDICATED THAT PT WILL LIKELY BE MEDICALLY STABLE TO DISCHARE HOME TOMORROW TO SELF CARE. PT IS AWARE AND AGREEABLE. NO OTHER CM INTERVENTION ANTIPATED. FOLLOWING SHOULD NEEDS ARISE.
[2019-12-09 16:28] VITALS: BP 136/91
[2019-12-09 19:20] VITALS: BP 151/91
--- NOTE | 2019-12-10 02:30 | NUR ---
Assumed care of patient this pm shift. Patient in good spirits, calm and cooperative. Assessment shows bilateral wheezes, bowel sounds active, s1 s2 present with auscultation. Vital signs stable. No signs of acute distress noted. Patient sleeping through the night. Affect euthymic. We will continue to monitor per hospital policy.
[2019-12-10 07:57] VITALS: BP 155/94
[2019-12-10] MEDS ORDERED: IPRAT-ALBUT 0.5-3 ML INH (10:02)
[2019-12-10] MEDS ORDERED: DOXYCYCLINE HY100 M4 PO (10:02)
[2019-12-10] MEDS ORDERED: NORVASC5 MG PO (10:02)
[2019-12-10] MEDS ORDERED: PREDNISONE 20 M20 MG PO (10:04)
[2019-12-10 11:08] VITALS: BP 155/94
--- NOTE | 2019-12-10 11:37 | NUR ---
Received awake on bed. Due medications given as prescribed, able to swallow meds w/o difficulty. On room air, on regular breathing treatments. A+OX4. On telemetry; SR-ST; no complains and signs of chest pain, crushing sensation and heaviness noted. On carb controlled diet- tolerating well; no nausea, no vomiting and no abdominal pain noted. On blood sugar monitoring, taken and recorded accordingly. With SL at R AC-intact and flushing well. Continent of bowel and bladder, able to go to the toilet independently. Independent with ADLs. Vital signs stable. To continue monitoring patient. Pt seen and examined by Dr Shukla- discharge orders made. Discharge instructions, follow up schedule given and instructed; pt informed that prescriptions went electronically. Discharge forms signed. IV discontinued. Telemetry discontinued and monitor returned. Pt brought out of the unit via wheelchair with her personal belongings. Pt discharged.
== END 2019-12-10 12:00 | disposition home or self-care (01) | DRG 189 ==
LOC: ER 17:59 → 4W 21:48 → EROBS 21:48 → 4W 12-08 17:46
PROVIDERS: Emergency Medicine; Nurse Practitioner Family; ADMIT Hospitalist; ATTEND Hospitalist
DX: J96.01 Acute respiratory failure with hypoxia (principal); J44.1 Chronic obstructive pulmonary disease with (acute) exacerbation; J45.901 Unspecified asthma with (acute) exacerbation; E11.9 Type 2 diabetes mellitus without complications; I10 Essential (primary) hypertension; J30.2 Other seasonal allergic rhinitis; K21.9 Gastro-esophageal reflux disease without esophagitis; Z88.2 Allergy status to sulfonamides; Z88.8 Allergy status to other drugs, medicaments and biological substances; Z87.891 Personal history of nicotine dependence; Z79.899 Other long term (current) drug therapy; Z20.828 Contact with and (suspected) exposure to other viral communicable diseases
CPT/HCPCS: 10045

== ENCOUNTER 2020-08-03 18:49 | Emergency (ER) | payer BC ==
[~2020-08-03] VITALS: Ht 170.2 cm; Wt 86.2 kg
[~2020-08-03 18:49] MED LIST changes: +COZAAR 50 MG TA50 MG PO; +DOXYCYCLINE HY100 M4 PO; +FLONASE 0.05%50 MCG NARES; +IPRAT-ALBUT 0.5-3 ML INH; +METFORMIN HCL500 M3 PO; +NORVASC5 MG PO; +PEPCID40 MG PO; +PROAIR RESPICL90 MCG INH; +SINGULAIR 10 MG10 MG PO; +SYSTANE NIGHTT3.5 GM OPHTHALMIC
[2020-08-03] MEDS ORDERED: PREDNISONE 20 M20 M1 PO (19:03)
[2020-08-03] MEDS ORDERED: NORFLEX100 MG PO (20:11)
[2020-08-03 20:13] VITALS: BP 157/97
== END 2020-08-03 20:20 | disposition home or self-care (01) ==
LOC: ER 18:49
DX: M54.5 Low back pain (principal); G89.29 Other chronic pain; F17.210 Nicotine dependence, cigarettes, uncomplicated; J45.909 Unspecified asthma, uncomplicated; E11.9 Type 2 diabetes mellitus without complications; I10 Essential (primary) hypertension; K21.9 Gastro-esophageal reflux disease without esophagitis; Z88.2 Allergy status to sulfonamides; Z88.8 Allergy status to other drugs, medicaments and biological substances; Z98.51 Tubal ligation status